=== PATIENT | male | born 1980 | race Caucasian/White ===

== ENCOUNTER 2018-05-02 14:08 | Emergency (ER) | payer BC, OTHER ==
[2018-05-02] MEDS: HYDROCODONE/APAP (5/325) TAB PO (14:28)
[2018-05-02] MEDS: DIPHTH/TET/ACEL PERTUSS (ADULT) 0.5 ML VIAL IM (14:29)
[2018-05-02] MEDS: LIDOCAINE 2%/EPI MPF (SDV) 20 ML VIAL INJ (14:30)
== END 2018-05-02 15:47 | disposition home or self-care (01) ==
LOC: FTE 14:08
DX: S51.812A Laceration without foreign body of left forearm, initial encounter (principal); W26.0XXA Contact with knife, initial encounter; Y92.9 Unspecified place or not applicable; Z23 Encounter for immunization
CPT/HCPCS: 12002; 90471; 90715; 99283-25

== ENCOUNTER 2018-05-05 22:01 | Emergency (ER) | payer BC, OTHER ==
[2018-05-06] MEDS: IBUPROFEN 600 MG TAB PO (00:17)
== END 2018-05-06 00:19 | disposition home or self-care (01) ==
LOC: FTE 05-06 00:19
DX: L53.9 Erythematous condition, unspecified (principal); Z48.01 Encounter for change or removal of surgical wound dressing
CPT/HCPCS: 99283

== ENCOUNTER 2018-05-18 02:53 | Emergency (ER) | payer BC, OTHER | END 2018-05-18 03:47 | disposition home or self-care (01) | LOC: FTE 02:53 | DX: Z48.02 Encounter for removal of sutures (principal) | CPT/HCPCS: 99283 ==